=== PATIENT | male | born 1960 ===

== ENCOUNTER 2018-11-11 12:16 | Outpatient (CLI) | payer BC ==
--- NOTE | 2018-11-11 13:51 | RAD ---
2 VIEWS RIGHT CALCANEUS: Date: 11/11/18 COMPARISON: None. HISTORY: Pain in posterior heel for 3 months. FINDINGS: There is prominent enthesophyte formation at the insertion of the Achilles tendon and origin of the p lantar aponeurosis. No acute fracture or dislocation. IMPRESSION: Prominent calcaneal enthesophyte formation. POS: [facility]
== END 2018-11-11 12:17 | disposition home or self-care (01) ==
LOC: BICRAD 12:16
PROVIDERS: ATTEND Podiatrist
DX: M79.671 Pain in right foot (principal); M77.51 Other enthesopathy of right foot and ankle

== ENCOUNTER 2018-11-18 10:36 | Outpatient (CLI) | payer BC ==
--- NOTE | 2018-11-18 10:52 | RAD ---
XR Chest Pa Lat STANDARD HISTORY: Adult medical exam COMPARISON: None FINDINGS: The heart size is normal. The lungs are well expanded without focal areas of consolidation, pneumothorax or pleural effusions. There are degenerative changes in the spine and right acromioclavicular joint. There are postop changes of right rotator cuff repair. IMPRESSION: No radiographic evidence of acute cardiopulmonary process.
== END 2018-11-18 10:37 | disposition home or self-care (01) ==
LOC: BICRAD 10:36
PROVIDERS: ATTEND Family Medicine
DX: Z00.00 Encounter for general adult medical examination without abnormal findings (principal)
CPT/HCPCS: 71046

== ENCOUNTER 2018-11-30 14:37 | Outpatient (CLI) | payer BC ==
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
== END 2018-11-30 14:38 | disposition home or self-care (01) ==
LOC: BICRAD 14:37
PROVIDERS: ATTEND Family Medicine
DX: V89.2XXA Person injured in unspecified motor-vehicle accident, traffic, initial encounter (principal)
CPT/HCPCS: 72040

== ENCOUNTER 2018-12-09 07:03 | Outpatient (CLI) | payer BC ==
[2018-12-09] MEDS ORDERED: Gadobenate Dimeglumine 529 MG/1 ML (20ML VIAL) ONE (09:00)
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
== END 2018-12-09 07:04 | disposition home or self-care (01) ==
LOC: SCSMRI 07:03
PROVIDERS: ATTEND Specialist
DX: S06.0X0A Concussion without loss of consciousness, initial encounter (principal)
CPT/HCPCS: 70553; A9577

== ENCOUNTER 2018-12-15 08:32 | Outpatient (CLI) | payer BC ==
--- NOTE | 2018-12-15 10:10 | MRI ---
MRI LEFT SHOULDER: 12/15/2018 PROVIDED CLINICAL HISTORY: Left shoulder pain. FINDINGS: There is high grade partial thickness bursal surface tearing involving the full width of the supraspi natus tendon at the footplate with about 1 cm of retraction. The components of the rotator cuff appea r otherwise intact. The longhead biceps tendon appears intact and normally located. There is a small glenohumeral joint effusion and conspicuous subacromial subdeltoid bursal fluid. The glenoid labrum and glenohumeral articular cartilage are suboptimally evaluated in the absence of gary nt distention. There is abnormal signal present in the region of the superior labrum that may reflec t SLAP tear. Prominent acromioclavicular joint degenerative changes are seen, producing mass effect upon the subja cent supraspinatus. Rotator cuff muscular volume appears preserved. No focal concerning regional mar row or muscular signal abnormality is evident. IMPRESSION: 1. At least high grade partial-thickness bursal surface tear involving the full width of the supraspi natus tendon. Conspicuous subacromial subdeltoid bursal fluid may reflect bursitis or an occult full thickness component to this tear. 2. Findings suspicious for SLAP tear. 3. Acromioclavicular joint osteoarthrosis. POS: [facility]
== END 2018-12-15 08:33 | disposition home or self-care (01) ==
LOC: BICMRI 08:32
PROVIDERS: ATTEND Specialist
DX: M25.812 Other specified joint disorders, left shoulder (principal); M75.122 Complete rotator cuff tear or rupture of left shoulder, not specified as traumatic; M19.012 Primary osteoarthritis, left shoulder